=== PATIENT | female | born 1980 | race Caucasian/White ===

== ENCOUNTER → 2022-09-11 | Outpatient (CLI) | payer BC, SELFPAY ==
[2022-09-11 11:43] LABS: Vitamin B12 339 pg/mL (211-911); Vitamin D,25 Hydroxy 32.4 ng/mL
[2022-09-11 11:49] LABS: Anion Gap 5 (5-15); BUN 16 mg/dL (7-18); BUN/Creat Ratio 18.5 RATIO (10-20); Calcium,Total 8.9 mg/dL (8.5-10.1); Chloride 108 mmol/L (98-107); Creatinine, Serum 0.87 mg/dL (0.55-1.02); EST Glomerular Filtration Rate 76 mL/min (>60); Est Glom Filt Rate - Afr Amer 91 mL/min (>60); Glucose 98 mg/dL (74-106); Potassium 4.1 mmol/L (3.5-5.1); Sodium Level 139 mmol/L (136-145); Thyroid Stim Hormone (TSH) 2.03 uIU/mL (0.358-3.74)
== END | disposition home or self-care (01) ==
PROVIDERS: Referring Provider Internal Medicine Endocrinology, Diabetes & Metabolism; Visit Provider Internal Medicine Endocrinology, Diabetes & Metabolism
DX: E03.0 Congenital hypothyroidism with diffuse goiter (principal); E55.9 Vitamin D deficiency, unspecified; D51.3 Other dietary vitamin B12 deficiency anemia
CPT/HCPCS: 36415; 80048; 82306; 82607; 84443

== ENCOUNTER → 2023-04-18 | Outpatient (CLI) | payer OTHER, SELFPAY ==
[2023-04-18 09:23] LABS: ALB/GLOB Ratio 1.1 RATIO (0.9-2.4); AST(SGOT) 10 U/L (15-37); Alanine Aminotransfer ALT/SGPT 17 U/L (13-56); Albumin, Serum 3.8 g/dL (3.2-5.0); Alkaline Phosphatase 92 U/L (45-117); Anion Gap 7 (5-15); BUN 17 mg/dL (7-18); Calcium,Total 8.9 mg/dL (8.5-10.1); Chloride 107 mmol/L (98-107); Creatinine, Serum 0.94 mg/dL (0.55-1.02); EST Glomerular Filtration Rate 68 mL/min (>60); Est Glom Filt Rate - Afr Amer 83 mL/min (>60); Globulin 3.6 g/dL (2.2-4.2); Glucose 101 mg/dL (74-106); Protein, Total 7.4 g/dL (6.4-8.2); Sodium Level 138 mmol/L (136-145); Thyroid Stim Hormone (TSH) 2.66 uIU/mL (0.358-3.74)
== END | disposition home or self-care (01) ==
LOC: PAVLAB 08:41
PROVIDERS: Visit Provider Internal Medicine Endocrinology, Diabetes & Metabolism
DX: Z71.3 Dietary counseling and surveillance (principal); E03.8 Other specified hypothyroidism
CPT/HCPCS: 36415; 80053; 84443

== ENCOUNTER → 2024-09-30 | Outpatient (CLI) | payer BC, SELFPAY ==
[2024-09-30 08:52] LABS: Vitamin D,25 Hydroxy 31.3 ng/mL
[2024-09-30 08:55] LABS: ALB/GLOB Ratio 1.1 RATIO (0.9-2.4); AST(SGOT) 12 U/L (15-37); Alanine Aminotransfer ALT/SGPT 12 U/L (13-56); Albumin, Serum 3.9 g/dL (3.2-5.0); Alkaline Phosphatase 97 U/L (45-117); Anion Gap 3 (5-15); BUN 19 mg/dL (7-18); BUN/Creat Ratio 18.6 RATIO (10-20); Calcium,Total 9.1 mg/dL (8.5-10.1); Chloride 106 mmol/L (98-107); Creatinine, Serum 1.02 mg/dL (0.55-1.02); EST Glomerular Filtration Rate 62 mL/min (>60); Est Glom Filt Rate - Afr Amer 75 mL/min (>60); Globulin 3.6 g/dL (2.2-4.2); Glucose 98 mg/dL (74-106); Potassium 4.2 mmol/L (3.5-5.1); Protein, Total 7.5 g/dL (6.4-8.2); Sodium Level 135 mmol/L (136-145)
== END | disposition home or self-care (01) ==
LOC: PAVLAB 08:09
PROVIDERS: Referring Provider Internal Medicine Endocrinology, Diabetes & Metabolism; Visit Provider Internal Medicine Endocrinology, Diabetes & Metabolism
DX: E03.8 Other specified hypothyroidism (principal); E55.9 Vitamin D deficiency, unspecified
CPT/HCPCS: 36415; 80053; 82306; 84443